=== PATIENT | female | born 1965 | race Caucasian/White ===

== ENCOUNTER 2018-04-30 05:39 | Emergency (ER) | payer SELFPAY ==
--- NOTE | 2018-04-30 06:34 | CR ---
INDICATION: Vomiting, diarrhea, abdominal pain TECHNIQUE: Chest 1 view. COMPARISON: None FINDINGS: Cardiovascular and mediastinum: Heart size and vasculature are normal in caliber and appearance. Mediastinum is within normal limits. Lungs and pleural space: Lungs are clear. No sign of infiltrate or mass. Blunting right costophrenic angle. No pneumothorax. Bones and soft tissues: No significant findings. IMPRESSION: No acute pulmonary or cardiac abnormalities. Blunting of the right costophrenic angle. Dictated by Blair Pittman MD @ 04/30/2018 6:32:26 AM Dictated by: Blair Pittman MD @ 04/30/2018 06:32:33 (Electronically Signed)
[2018-04-30 06:39] LABS: CHLORIDE,CL 107 mmol/L (98-107); SODIUM,NA 142 mmol/L (136-145)
[2018-04-30] MEDS ORDERED: Sodium Chloride 0.9% 1,000 ML IV ONE (06:57)
--- NOTE | 2018-04-30 07:29 | CT ---
INDICATION: Vomiting, diarrhea and abdominal pain. TECHNIQUE: Volumetric helical scanning of the abdomen and pelvis was performed without contrast material. Coronal and sagittal reconstructions were obtained. COMPARISON: None FINDINGS: There is no evidence of bowel obstruction or inflammation. A normal retrocecal appendix is noted. No free fluid or free air is demonstrated. The liver is normal in size, shape and attenuation. No bile duct dilation is evident. The spleen is within normal limits. The adrenal glands are unremarkable. The pancreas is within normal limits. The kidneys are unremarkable. No lymphadenopathy is evident. Postop changes of total abdominal hysterectomy are demonstrated. The lung bases are clear. The heart is normal in size. Calcified coronary arterial plaque is demonstrated. IMPRESSION: 1. Etiology of vomiting, diarrhea and abdominal pain not evident. 2. Post total abdominal hysterectomy. 3. Coronary artery disease. Please note that all CT scans at this facility use dose modulation, iterative reconstruction, and/or weight-based dosing when appropriate to reduce radiation dose to as low as reasonably achievable. Dictated by Alberto Moreira MD @ Apr 30 2018 7:25AM Signed by Dr. Alberto Moreira @ Apr 30 2018 7:28AM
--- NOTE | 2018-04-30 07:49 | EDM.PDOC ---
ED HPI GENERAL MEDICAL PROBLEM - General Chief Complaint: Gastrointestinal Problem Stated Complaint: RECTAL PAIN, PERSISTENT DIARRHEA Time Seen by Provider: 04/30/18 07:18 - History of Present Illness INITIAL COMMENTS - FREE TEXT/NARRATIVE: HISTORY AND PHYSICAL: History of present illness: Patient's 52-year-old white female who presents with a concern of diarrhea is been worse over last several day she was seen by her primary medical doctor and had stool screen including C. difficile as outpatient this is reportedly been negative there's been no fever chills she has had some nausea and vomiting Review of systems: As per history of present illness and below otherwise all systems reviewed and negative. Past medical history: As per history of present illness and as reviewed below otherwise noncontributory. Surgical history: As per history of present illness and as reviewed below otherwise noncontributory. Social history: No reported history of drug or alcohol abuse. Family history: As per history of present illness and as reviewed below otherwise noncontributory. Physical exam: HEENT: Atraumatic, normocephalic, pupils reactive, negative for conjunctival pallor or scleral icterus, mucous membranes moist, throat clear, neck supple, nontender, trachea midline. Lungs: Clear to auscultation, breath sounds equal bilaterally, chest nontender. Heart: S1S2, regular, negative for clicks, rubs, or JVD. Abdomen: Soft, nondistended, nontender. Negative for masses or hepatosplenomegaly. Negative for costovertebral tenderness. Pelvis: Stable nontender. Genitourinary: Deferred. Rectal: Deferred. Extremities: Atraumatic, negative for cords or calf pain. Neurovascular unremarkable. Neuro: Awake, alert, oriented. Cranial nerves II through XII unremarkable. Cerebellum unremarkable. Motor and sensory unremarkable throughout. Exam nonfocal. Diagnostics: CBC CMP stool for C&S O&P C. difficile CT abdomen and pelvis EKG chest x-ray Therapeutics: Saline 1 L bolus Zofran 4 mg IV Impression: #1 gastroenteritis Definitive disposition and diagnosis as appropriate pending reevaluation and review of above. Rectal Pain Score (Numeric/FACES): 10 - Related Data Allergies Allergy/AdvReac Type Severity Reaction Status Date / Time Penicillins Allergy Swelling Verified 04/30/18 05:52 Home Meds: Home Meds Aspirin [Adult Low Dose Aspirin EC] 81 mg PO DAILY 04/30/18 [History] Metoprolol Succinate [Toprol XL 50mg] 50 mg PO BID 04/30/18 [History] Omeprazole 40 mg PO DAILY 04/30/18 [History] Past Medical History HEENT History: Reports: None Cardiovascular History: Reports: Hypertension Respiratory History: Reports: Other (See Below) Other Respiratory History: R lung thoracotomy 2 lower lobes Gastrointestinal History: Reports: GERD 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: Neurological History: Reports: Other (See Below) Other Neuro History: ischemic stroke Psychiatric History: Reports: None Hematologic History: Reports: None Immunologic History: Reports: Other (See Below) Other Immunologic History: lupus Oncologic (Cancer) History: Reports: None - Infectious Disease History Infectious Disease History: Reports: Chicken Pox, Measles - Past Surgical History Female Surgical History: Reports: Section, Hysterectomy, Tubal Ligation Social & Family History - Tobacco Use Smoking Status *Q: Current Every Day Smoker Years of Tobacco use: 22 Packs/Tins Daily: 0.5 - Caffeine Use Caffeine Use: Reports: Coffee - Recreational Drug Use Recreational Drug Use: No ED ROS GENERAL - Review of Systems Review Of Systems: ROS reveals no pertinent complaints other than HPI. ED EXAM, GENERAL - Physical Exam Exam: See Below (See dictation) Course - Vital Signs Last Recorded V/S: Last Vital Signs Temp 36.7 C 04/30/18 05:48 Pulse 84 04/30/18 05:48 Resp 20 04/30/18 05:48 BP 131/82 04/30/18 05:48 Pulse Ox 95 04/30/18 05:48 - Orders/Labs/Meds Orders: Active Orders 24 hr Category Date Time Status EKG 12 Lead [EKG Documentation Completion] [RC] STAT Care 04/30/18 06:01 Active CDIFF TOX A+B [OP] Stat Lab 04/30/18 05:59 Ordered CULTURE STOOL + CAMPY+SHIGATOX [RM] Stat Lab 04/30/18 05:59 Ordered Sodium Chloride 0.9% [Normal Saline] 1,000 ml Med 04/30/18 06:57 Active IV .BOLUS Saline Lock Insert [OM.PC] Stat Oth 04/30/18 06:02 Ordered Medication Orders Sodium Chloride (Normal Saline) 1,000 mls @ 999 mls/hr IV .BOLUS ONE Stop: 04/30/18 07:57 Last Admin: 04/30/18 07:15 Dose: 999 mls/hr Labs: Laboratory Tests 04/30/18 04/30/18 04/30/18 Range/Units 06:07 06:07 06:07 WBC 10.21 (4.0-11.0) K/uL RBC 4.46 (4.30-5.90) M/uL Hgb 14.5 (12.0-16.0) g/dL Hct 41.1 (36.0-46.0) % MCV 92.2 (80.0-98.0) fL MCH 32.5 H (27.0-32.0) pg MCHC 35.3 (31.0-37.0) g/dL RDW Std Deviation 44.3 (28.0-62.0) fl RDW Coeff of Demetris 13 (11.0-15.0) % Plt Count 408 H (150-400) K/uL MPV 9.30 (7.40-12.00) fL Neut % (Auto) 65.6 (48.0-80.0) % Lymph % (Auto) 22.9 (16.0-40.0) % [place] % (Auto) 8.4 (0.0-15.0) % Eos % (Auto) 2.6 (0.0-7.0) % Baso % (Auto) 0.5 (0.0-1.5) % Neut # (Auto) 6.7 H (1.4-5.7) K/uL Lymph # (Auto) 2.3 (0.6-2.4) K/uL [place] # (Auto) 0.9 H (0.0-0.8) K/uL Eos # (Auto) 0.3 (0.0-0.7) K/uL Baso # (Auto) 0.1 (0.0-0.1) K/uL Nucleated RBC % 0.0 /100WBC Nucleated RBCs # 0 K/uL INR 0.95 Sodium 142 (136-145) mmol/L Potassium 3.3 L (3.5-5.1) mmol/L Chloride 107 (98-107) mmol/L Carbon Dioxide 26.1 (21.0-32.0) mmol/L BUN 6 L (7.0-18.0) mg/dL Creatinine 0.8 (0.6-1.0) mg/dL Est Cr Clr Drug Dosing 66.50 mL/min Estimated GFR (MDRD) > 60.0 ml/min Glucose 94 (74-106) mg/dL Calcium 9.5 (8.5-10.1) mg/dL Total Bilirubin 0.2 (0.2-1.0) mg/dL AST 12 L (15-37) IU/L ALT 12 L (14-63) IU/L Alkaline Phosphatase 68 (46-116) U/L Troponin I < 0.050 (0.000-0.056) ng/mL Total Protein 6.9 (6.4-8.2) g/dL Albumin 3.3 L (3.4-5.0) g/dL Globulin 3.6 (2.6-4.0) g/dL Albumin/Globulin Ratio 0.9 (0.9-1.6) H. pylori IgG Antibody (NEG) 04/30/18 Range/Units 06:07 WBC (4.0-11.0) K/uL RBC (4.30-5.90) M/uL Hgb (12.0-16.0) g/dL Hct (36.0-46.0) % MCV (80.0-98.0) fL MCH (27.0-32.0) pg MCHC (31.0-37.0) g/dL RDW Std Deviation (28.0-62.0) fl RDW Coeff of Demetris (11.0-15.0) % Plt Count (150-400) K/uL MPV (7.40-12.00) fL Neut % (Auto) (48.0-80.0) % Lymph % (Auto) (16.0-40.0) % [place] % (Auto) (0.0-15.0) % Eos % (Auto) (0.0-7.0) % Baso % (Auto) (0.0-1.5) % Neut # (Auto) (1.4-5.7) K/uL Lymph # (Auto) (0.6-2.4) K/uL [place] # (Auto) (0.0-0.8) K/uL Eos # (Auto) (0.0-0.7) K/uL Baso # (Auto) (0.0-0.1) K/uL Nucleated RBC % /100WBC Nucleated RBCs # K/uL INR Sodium (136-145) mmol/L Potassium (3.5-5.1) mmol/L Chloride (98-107) mmol/L Carbon Dioxide (21.0-32.0) mmol/L BUN (7.0-18.0) mg/dL Creatinine (0.6-1.0) mg/dL Est Cr Clr Drug Dosing mL/min Estimated GFR (MDRD) ml/min Glucose (74-106) mg/dL Calcium (8.5-10.1) mg/dL Total Bilirubin (0.2-1.0) mg/dL AST (15-37) IU/L ALT (14-63) IU/L Alkaline Phosphatase (46-116) U/L Troponin I (0.000-0.056) ng/mL Total Protein (6.4-8.2) g/dL Albumin (3.4-5.0) g/dL Globulin (2.6-4.0) g/dL Albumin/Globulin Ratio (0.9-1.6) H. pylori IgG Antibody NEGATIVE (NEG) Meds: Medications Generic Name Dose Route Start Last Admin Trade Name Freq PRN Reason Stop Dose Admin Sodium Chloride 1,000 mls @ 999 mls/hr 04/30/18 06:57 04/30/18 07:15 Normal Saline IV 04/30/18 07:57 999 mls/hr .BOLUS ONE Administration Departure - Departure Time of Disposition: 07:48 Disposition: Home, Self-Care 01 Condition: Good Clinical Impression: Gastroenteritis - Discharge Information Referrals: PCP,None [Primary Care Provider] - Additional Instructions: The following information is given to patients seen in the emergency department who are being discharged to home. This information is to outline your options for follow-up care. We provide all patients seen in our emergency department with a follow-up referral. The need for follow-up, as well as the timing and circumstances, are variable depending upon the specifics of your emergency department visit. If you don't have a primary care physician on staff, we will provide you with a referral. We always advise you to contact your personal physician following an emergency department visit to inform them of the circumstance of the visit and for follow-up with them and/or the need for any referrals to a consulting specialist. The emergency department will also refer you to a specialist when appropriate. This referral assures that you have the opportunity for followup care with a specialist. All of these measure are taken in an effort to provide you with optimal care, which includes your followup. Under all circumstances we always encourage you to contact your private physician who remains a resource for coordinating your care. When calling for followup care, please make the office aware that this follow-up is from your recent emergency room visit. If for any reason you are refused follow-up, please contact the [facility] emergency department at and asked to speak to the emergency department charge nurse. Push fluids clear liquids as directed avoid dairy 72 hours follow-up primary medical doctor as needed as discussed return as needed as discussed - My Orders Last 24 Hours: My Active Orders 04/30/18 05:59 CDIFF TOX A+B [OP] Stat CULTURE STOOL + CAMPY+SHIGATOX [RM] Stat 04/30/18 06:01 EKG 12 Lead [EKG Documentation Completion] [RC] STAT 04/30/18 06:02 Saline Lock Insert [OM.PC] Stat 04/30/18 06:57 Sodium Chloride 0.9% [Normal Saline] 1,000 ml IV .BOLUS - Assessment/Plan Last 24 Hours: My Active Orders 04/30/18 05:59 CDIFF TOX A+B [OP] Stat CULTURE STOOL + CAMPY+SHIGATOX [RM] Stat 04/30/18 06:01 EKG 12 Lead [EKG Documentation Completion] [RC] STAT 04/30/18 06:02 Saline Lock Insert [OM.PC] Stat 04/30/18 06:57 Sodium Chloride 0.9% [Normal Saline] 1,000 ml IV .BOLUS
== END 2018-04-30 09:40 | disposition home or self-care (01) ==
LOC: MW.ED 05:39
DX: K52.9 Noninfective gastroenteritis and colitis, unspecified (principal); I10 Essential (primary) hypertension; F17.210 Nicotine dependence, cigarettes, uncomplicated; Z88.0 Allergy status to penicillin; Z79.82 Long term (current) use of aspirin; Z79.899 Other long term (current) drug therapy
CPT/HCPCS: 71045; 74176; 80053; 84484; 85025; 85610; 86677; 87046; 87324; 87899; 93005; 96360; 99285; J7040; 99284

== ENCOUNTER 2018-05-31 11:15 | Day surgery (SDC) | payer MEDICAID ==
[~2018-05-31 11:15] MED LIST: Lactated Ringers 1,000 ML IV SCH; Sodium Chloride 0.9% 10 ML Syringe FLUSH PRN; Sodium Chloride 0.9% 2.5 ML Syringe FLUSH PRN
--- NOTE | 2018-05-31 12:13 | PCM.PREANE ---
Preanesthetic Assessment - Anesthesia/Transfusion/Family Hx Anesthesia History: Prior Anesthesia Without Reaction Family History of Anesthesia Reaction: No Transfusion History: No Prior Transfusion(s) Intubation History: Unknown - Review of Systems General: No Symptoms Pulmonary: No Symptoms Cardiovascular: No Symptoms Gastrointestinal: Abdominal Pain (rectal pain), Diarrhea, Other (father had colon cancer) Neurological: No Symptoms Other: Reports: None - Physical Assessment O2 Sat by Pulse Oximetry: 99 Respiratory Rate: 16 Vital Signs: Last Vital Signs Temp 37.0 C 05/31/18 11:54 Pulse 62 05/31/18 11:54 Resp 16 05/31/18 11:54 BP 125/84 05/31/18 11:54 Pulse Ox 99 05/31/18 11:54 Height: 1.6 m Weight: 64.41 kg ASA Class: 2 Mental Status: Alert & Oriented x3 Airway Class: Mallampati = 2 Dentition: Reports: Dentures (upper and lower) Thyro-Mental Finger Breadths: 3 Mouth Opening Finger Breadths: 3 ROM/Head Extension: Full Lungs: Clear to Auscultation, Normal Respiratory Effort Cardiovascular: Regular Rate, Regular Rhythm - Allergies Allergies/Adverse Reactions: Allergies Allergy/AdvReac Type Severity Reaction Status Date / Time Penicillins Allergy Anaphylactic Verified 05/27/18 12:52 Shock - Blood Blood Available: No - Anesthesia Plan Pre-Op Medication Ordered: None - Acknowledgements Anesthesia Type Planned: MAC Pt an Appropriate Candidate for the Planned Anesthesia: Yes Alternatives and Risks of Anesthesia Discussed w Pt/Guardian: Yes Pt/Guardian Understands and Agrees with Anesthesia Plan: Yes PreAnesthesia Questionnaire HEENT History: Reports: Hard of Hearing Cardiovascular History: Reports: Hypertension Respiratory History: Reports: Other (See Below) Other Respiratory History: 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, doing well Gastrointestinal History: Reports: Chronic Diarrhea, GERD Genitourinary History: Reports: None 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: Musculoskeletal History: Reports: RA Neurological History: Reports: None Psychiatric History: Reports: None Endocrine/Metabolic History: Reports: None Hematologic History: Reports: None Immunologic History: Reports: Other (See Below) Other Immunologic History: lupus antibodies - never diagnosed with lupus Oncologic (Cancer) History: Reports: Other (See Below) Other Oncologic History: hx of carcinoid tumor rt lung Dermatologic History: Reports: None - Infectious Disease History Infectious Disease History: Reports: Chicken Pox, Measles - Past Surgical History Head Surgeries/Procedures: Reports: None Respiratory Surgical History: Reports: Lung Resection, Other (See Below) Other Respiratory Surgeries/Procedures: rt lobectomy for removal of carcinoid tumor rt lung Female Surgical History: Reports: Section, Hysterectomy, Tubal Ligation - SUBSTANCE USE Smoking Status *Q: Current Every Day Smoker (1/2-1 ppd) Tobacco Use Within Last Twelve Months: Cigarettes Recreational Drug Use History: No - HOME MEDS Home Medications: Home Meds Metoprolol Succinate [Toprol XL 50mg] 50 mg PO BID 04/30/18 [History] Omeprazole 40 mg PO DAILY 04/30/18 [History] Hydrocortisone [Preparation H] 1 applic RECTAL ASDIRECTED PRN 05/27/18 [History] - CURRENT (IN HOUSE) MEDS Current Meds: Current Medications Lactated Ringer's (Ringers, Lactated) 1,000 mls @ 125 mls/hr IV ASDIRECTED TELLO Last Admin: 05/31/18 11:50 Dose: 125 mls/hr Sodium Chloride (Saline Flush) 10 ml FLUSH ASDIRECTED PRN PRN Reason: Keep Vein Open Sodium Chloride (Saline Flush) 2.5 ml FLUSH ASDIRECTED PRN PRN Reason: Keep Vein Open Sodium Chloride (Saline Flush) 10 ml FLUSH ASDIRECTED PRN PRN Reason: Keep Vein Open Sodium Chloride (Saline Flush) 2.5 ml FLUSH ASDIRECTED PRN PRN Reason: Keep Vein Open
[2018-05-31] MEDS ORDERED: Midazolam 1 MG/ML 2 ML SDV ONE (13:52)
[2018-05-31] MEDS ORDERED: fentaNYL 100 MCG/2 ML SDV ONE (13:53)
[2018-05-31] MEDS ORDERED: Propofol 200 MG/20 ML SDV ONE (13:54)
[2018-05-31] MEDS ORDERED: Lidocaine 2% 5 ML SDV ONE (13:54)
--- NOTE | 2018-05-31 15:13 | PCM.OPNOTE ---
- General Post-Op/Procedure Note Date of Surgery/Procedure: 05/31/18 Operative Procedure(s): Diagnostic EGD and colonoscopy Findings: Duodenal polyps, sigmoid colon polyp, rectal polyp, grade 2 hemorrhoids Pre Op Diagnosis: change in bowel habits, gerd Post-Op Diagnosis: Duodenal polyps, sigmoid colon polyp, rectal polyp, grade 2 hemorrhoids Anesthesia Technique: MAC Primary Surgeon: Blanche Dixon Condition: Good
--- NOTE | 2018-05-31 15:20 | PCM48HPAN ---
Post Anesthesia Note - EVALUATION WITHIN 48HRS OF ANESTHETIC Vital Signs in Normal Range: Yes Patient Participated in Evaluation: Yes Respiratory Function Stable: Yes Airway Patent: Yes Cardiovascular Function Stable: Yes Hydration Status Stable: Yes Pain Control Satisfactory: Yes Nausea and Vomiting Control Satisfactory: Yes Mental Status Recovered: Yes Resp Rate: 12 - COMMENTS/OBSERVATIONS Free Text/Narrative:: No anesthesia problems.
--- NOTE | 2018-05-31 15:42 | OR ---
SURGEON: MICHAEL PIERRE MD DATE OF PROCEDURE: 05/31/2018 PREOPERATIVE DIAGNOSES: 1. Reflux. 2. Change in bowel habits. POSTOPERATIVE DIAGNOSES: 1. Duodenal polyp. 2. Grade 2 hemorrhoids. 3. Sigmoid colon polyps. 4. Rectal polyp. PROCEDURES PERFORMED: Diagnostic EGD and colonoscopy. ANESTHESIA: MAC. INSTRUMENT USED: Olympus endoscope and colonoscope. EXTENT OF EXAM: To the second portion of duodenum, to the cecum. PREPARATION: Good. LIMITATIONS: None. INDICATION FOR EXAMINATION: The patient is a 52-year-old female with a past medical history significant for carcinoid of the lung who presents with a change in her bowel habits and longstanding GERD. After discussion of her symptoms, the decision was made to proceed with diagnostic EGD and colonoscopy. The patient and I discussed the procedure as well as the expected perioperative course, we discussed the risks including bleeding, infection, or damage to surrounding structures including perforation. The patient verbalized understanding and wishes to proceed. PROCEDURE IN DETAIL: The patient was brought into the endoscopy suite and placed in a left lateral decubitus position. A time-out was completed verifying the patient's name, age, date of , allergies, and procedure to be performed. A bite block was placed in the patient's mouth. Monitored anesthesia care was induced and continuous oxygen was provided via nasal cannula throughout the procedure. After adequate sedation was achieved, a well-lubricated endoscope was placed in the patient's mouth and advanced under direct visualization to the second portion of duodenum. This appeared normal and a photograph was taken. The scope was then fully withdrawn while examining the color, texture, anatomy, and integrity of the mucosa of the upper GI tract. In the first portion of the duodenum, there were several small hyperplastic-appearing polyps. A biopsy of one of these was taken using a cold biopsy forceps. It was sent to Pathology, labeled as duodenal biopsy. The scope was then brought in the stomach and a photograph was taken of the pylorus as well as the GE junction. Both appeared normal. There was no evidence of gross inflammation or ulceration in the stomach. Biopsies were taken of the gastric antrum, body, and fundus and sent for histologic review and H. pylori testing. The scope was then brought into the distal esophagus. The Z-line appeared normal and a photograph was taken. The remainder of the esophageal mucosa appeared free of pathology. The scope was removed and this portion of procedure was terminated. A digital rectal exam was performed. The patient did have some grade 2 hemorrhoids, but the digital rectal exam was otherwise normal. A well-lubricated colonoscope was inserted into the rectum and advanced under direct visualization to the level of the cecum. The cecum was identified by both visual and anatomic landmarks. A photograph was taken of the cecal cap, however, I was unable to retroflex the scope within the cecum due to looping of the scope more proximally. The scope was then straightened out and fully withdrawn while examining the color, texture, anatomy, and integrity of the mucosa from the cecum to the anal canal. The patient was found to have a polyp within the sigmoid colon. This was removed using a cold biopsy forceps. The scope was then brought into the rectum. A small sessile polyp was noted in the proximal rectum. This was removed using a cold biopsy forceps. The scope was then retroflexed to allow visualization of the anal canal opening. This again confirmed grade 2 hemorrhoidal disease. The scope was then straightened out and fully withdrawn. The cecum to anus time was 11 minutes. The patient tolerated the procedure well and was taken to PACU in stable condition. ENDOSCOPIC DIAGNOSES: 1. Duodenal polyp. 2. Grade 2 hemorrhoids. 3. Sigmoid colon polyps. 4. Rectal polyp. RECOMMENDATIONS: Follow up in clinic in 2 weeks. HONEY IRVING /[id number]
== END 2018-05-31 15:22 | disposition home or self-care (01) ==
LOC: MW.SDS 11:15
PROVIDERS: ATTEND Surgery
DX: D12.5 Benign neoplasm of sigmoid colon (principal); D12.8 Benign neoplasm of rectum; K64.1 Second degree hemorrhoids; K31.7 Polyp of stomach and duodenum; K29.50 Unspecified chronic gastritis without bleeding; K21.9 Gastro-esophageal reflux disease without esophagitis; I10 Essential (primary) hypertension; F17.290 Nicotine dependence, other tobacco product, uncomplicated; F17.210 Nicotine dependence, cigarettes, uncomplicated; Z88.0 Allergy status to penicillin; Z85.110 Personal history of malignant carcinoid tumor of bronchus and lung; Z80.0 Family history of malignant neoplasm of digestive organs; Z79.899 Other long term (current) drug therapy
CPT/HCPCS: 43239; 45380; 88305; 88312; J2001; J2250; J2704; J3010; J7120; 00813